=== PATIENT | male | born 1980 | race African-American/Black ===

== ENCOUNTER 2017-08-12 15:04 | Emergency (ER) | payer MEDICARE, MEDICAID ==
--- NOTE | 2017-08-12 16:23 | ER Document Report ---
ED Headache - General Chief Complaint: Headache >24 hrs old Stated Complaint: HEAD PAIN Time Seen by Provider: 08/12/17 15:48 Notes: 36-year-old male to the emergency department with a 6 day history of headache. Seen by his primary care doctor Dr. Burnett a few days ago. Was prescribed some medication for the headache but nothing has helped. Was recommended that he come to the emergency department for further evaluation if symptoms persisted. Patient states that he had a fever on and off for the last couple of days but no fever at this time. Fever was never greater than 99. Denies any significant neck stiffness but does have some spasticity is with his cerebral palsy. Did have a ventricular shunt when he was child but this has since been removed. No prior history of meningitis. No recent surgeries. No changes in medication. Headache is located at the occiput. No worsening neurological symptoms. No rash. Patient does complain of a sore throat. TRAVEL OUTSIDE OF THE [place] IN LAST 30 DAYS: No - Related Data Allergies/Adverse Reactions: No Known Allergies Allergy (Unverified 08/12/17 15:20) Home Medications: Current Home Medications Amoxicillin 500 mg PO BID 08/12/17 [History] Butalb/Acetaminophen/Caffeine [Fioricet 50-300-40 mg Capsule] 1 cap PO Q4HP PRN 08/12/17 [History] Carvedilol 6.25 mg PO BID 08/12/17 [History] Chlorpheniramine Maleate [Aller-Chlor 4 mg Tablet] 1 tab PO Q6HP PRN 08/12/17 [ History] Lisinopril 20 mg PO DAILY 08/12/17 [History] Omeprazole 20 mg PO DAILY 08/12/17 [History] Past Medical History - Social History Smoking Status: Never Smoker Chew tobacco use (# tins/day): No Frequency of alcohol use: None Drug Abuse: None Family History: Reviewed & Not Pertinent Renal/ Medical History: Denies: Hx Peritoneal Dialysis Past Surgical History: Reports: Hx Orthopedic Surgery - right hip/leg - Immunizations Hx Diphtheria, Pertussis, Tetanus Vaccination: No Review of Systems - Review of Systems Constitutional: No symptoms reported EENT: No symptoms reported, Throat pain Cardiovascular: No symptoms reported Respiratory: No symptoms reported Gastrointestinal: No symptoms reported Genitourinary: No symptoms reported Male Genitourinary: No symptoms reported Musculoskeletal: No symptoms reported Skin: No symptoms reported Hematologic/Lymphatic: No symptoms reported Neurological/Psychological: No symptoms reported, Headaches Physical Exam - Vital signs Vitals: Temp Pulse Resp BP Pulse Ox 99.2 F 88 17 142/83 H 96 08/12/17 15:18 08/12/17 15:18 08/12/17 15:18 08/12/17 15:18 08/12/17 15:18 Interpretation: Normal - General General appearance: Appears well, Alert In distress: None Notes: he does have sequela of cerebral palsy - HEENT Head: Normocephalic, Atraumatic Eyes: Normal Extraocular movements intact: Yes - Patient does have abnormal eye movements consistent with his history of CP Pupils: PERRL Pharynx: Erythema Neck: Normal - Respiratory Respiratory status: No respiratory distress Chest status: Nontender Breath sounds: Normal Chest palpation: Normal - Cardiovascular Rhythm: Regular Heart sounds: Normal auscultation Murmur: No - Abdominal Inspection: Normal Distension: No distension Bowel sounds: Normal Tenderness: Nontender Organomegaly: No organomegaly - Back Back: Normal, Nontender - Extremities General upper extremity: Normal inspection, Nontender, Normal color, Normal ROM , Normal temperature General lower extremity: Normal inspection, Nontender, Normal color, Normal ROM , Normal temperature, Normal weight bearing. No: Vlaerie's sign - Neurological Neuro grossly intact: Yes Cognition: Normal Orientation: AAOx4 Steven Coma Scale Eye Opening: Spontaneous [place] Coma Scale Verbal: Oriented Steven Coma Scale Motor: Obeys Commands [place] Coma Scale Total: 15 Speech: Normal Motor strength normal: LUE, RUE, LLE, RLE Sensory: Normal - Psychological Associated symptoms: Normal affect, Normal mood - Skin Skin Temperature: Warm Skin Moisture: Dry Skin Color: Normal Course - Re-evaluation Re-evalutation: 08/12/17 19:15 This is a very pleasant 36-year-old male in no acute distress at this time. Blood work, CT scan was performed. The only remarkable finding was some chronic thing seen on CT scan as well as maxillary sinusitis. Sinusitis could be leading to his symptoms. The CBC was abnormal in that the WBC count was slightly low and he did have some abnormal appearing cells with a elevated monocyte count. A Monospot test was added but it was unremarkable/negative. More than likely though this does represent a viral infection. I had a long conversation with the family regarding his abnormal CBC. He does not manifest any signs of meningitis at this time. His repeat exam was unremarkable. His vital signs were unremarkable. Will start on Augmentin for sinusitis. Will give some ibuprofen. Recommend that they give him ibuprofen every 8 hours. Family is comfortable with this plan at this time. Strict warning signs are given that if he develops fever, worsening headache, neck stiffness, rash, easy bruising or any other concerns he should return immediately. 08/12/17 19:17 Labs- Entire Visit 08/12/17 08/12/17 08/12/17 16:15 16:25 16:25 WBC 3.8 L RBC 5.14 Hgb 14.9 Hct 44.2 MCV 86 MCH 28.9 MCHC 33.6 RDW 15.0 H Plt Count 165 Total Counted 100 Seg Neutrophils % Not Reportable Seg Neuts % (Manual) 44 Lymphocytes % Not Reportable Lymphocytes % (Manual) 21 Monocytes % Not Reportable Monocytes % (Manual) 22 H Eosinophils % Not Reportable Eosinophils % (Manual) 8 H Basophils % Not Reportable Basophils % (Manual) 5 H Absolute Neutrophils Not Reportable Abs Neuts (Manual) 1.7 Absolute Lymphocytes Not Reportable Abs Lymphs (Manual) 0.8 Absolute Monocytes Not Reportable Abs Monocytes (Manual) 0.8 Absolute Eosinophils Not Reportable Absolute Eos (Manual) 0.3 Absolute Basophils Not Reportable Abs Basophils (Manual) 0.2 Smudge Cells PRESENT Large Platelets PRESENT Platelet Comment ADEQUATE Poikilocytosis SLIGHT Anisocytosis SLIGHT Ovalocytes 1+ Sodium 143.2 Potassium 4.0 Chloride 105 Carbon Dioxide 28 Anion Gap 10 BUN 10 Creatinine 0.94 Est GFR ( Amer) > 60 Est GFR (Non-Af Amer) > 60 Glucose 99 Calcium 9.4 Total Bilirubin 0.4 Direct Bilirubin 0.3 Indirect Bilirubin Not Reportable Neonat Total Bilirubin Not Reportable AST 39 ALT 51 Alkaline Phosphatase 70 Total Protein 6.9 Albumin 3.9 Monotest Group A Strep Rapid NEGATIVE 08/12/17 18:02 WBC RBC Hgb Hct MCV MCH MCHC RDW Plt Count Total Counted Seg Neutrophils % Seg Neuts % (Manual) Lymphocytes % Lymphocytes % (Manual) Monocytes % Monocytes % (Manual) Eosinophils % Eosinophils % (Manual) Basophils % Basophils % (Manual) Absolute Neutrophils Abs Neuts (Manual) Absolute Lymphocytes Abs Lymphs (Manual) Absolute Monocytes Abs Monocytes (Manual) Absolute Eosinophils Absolute Eos (Manual) Absolute Basophils Abs Basophils (Manual) Smudge Cells Large Platelets Platelet Comment Poikilocytosis Anisocytosis Ovalocytes Sodium Potassium Chloride Carbon Dioxide Anion Gap BUN Creatinine Est GFR ( Amer) Est GFR (Non-Af Amer) Glucose Calcium Total Bilirubin Direct Bilirubin Indirect Bilirubin Neonat Total Bilirubin AST ALT Alkaline Phosphatase Total Protein Albumin Monotest NEGATIVE Group A Strep Rapid Head CT 08/12/17 16:15 IMPRESSION: 1. Left lateral ventricle is larger than right as described. 2. 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 Remote infarct versus arachnoid cyst. 3. Abnormal optic globes. 4. Maxillary sinus disease. EVIDENCE OF ACUTE STROKE: NO. - Vital Signs Vital signs: Temp Pulse Resp BP Pulse Ox 98.9 F 88 17 142/83 H 96 08/12/17 17:51 08/12/17 15:18 08/12/17 15:18 08/12/17 15:18 08/12/17 15:18 - Laboratory Result Diagrams: 08/12/17 16:25 08/12/17 16:25 Laboratory results interpreted by me: 08/12/17 16:25 WBC 3.8 L RDW 15.0 H Monocytes % (Manual) 22 H Eosinophils % (Manual) 8 H Basophils % (Manual) 5 H Discharge - Discharge Clinical Impression: High blood monocyte count Leukopenia Qualifiers: Leukopenia type: neutropenia Neutropenia type: unspecified Qualified Code(s): D70.9 - Neutropenia, unspecified Headache Qualifiers: Headache type: unspecified Additional Instructions: Abnormal blood count As mentioned your CBC was slightly abnormal. Please follow-up with Dr. Burnett to have repeat blood work done. Return immediately for any bruising, rash, high fever or other concerns. Sinusitis You have sinusitis, an infection of the sinus cavities of the face. The sinuses are air-filled chambers which open into the inside of the nose. Bacteria and pus fill a sinus, causing pain, drainage, and fever. Sinusitis is treated with antibiotics. Often, expectorants (to thin the sinus mucous) or decongestants (to reduce swelling) are prescribed as well. Healing requires seven to 10 days. Avoid chemical fumes, pollens, dusts, and smoke (especially cigarette smoke ). Keep the air humidified in your bedroom and work area and take plenty of liquids by mouth. This condition can be serious if the infection spreads. If your symptoms worsen, or if you develop severe headache, high fever, stiff neck, or a rash, you must call the doctor or return for re-evaluation. Headache The physician does not feel that the headache you are experiencing has a serious underlying cause. Most headaches are due to emotional stress, with resultant muscle tension (tension headache). Occasionally, headaches are secondary to changes in the blood vessels of the scalp (vascular headache and migraine headache). Sometimes, a headache is the first symptom of another developing illness, such as a viral infection. You have no evidence of stroke, bleeding, meningitis, or other serious cause of your headache. The treatment of headaches varies with the severity and cause of the pain. Not all headaches need pain shots. In fact, there is evidence that using narcotics for headaches may make them worse in the long run. The physician will determine the therapy that's in your best interest. If you develop a fever, if the headache is different from any you've previously experienced, or if the headache progressively worsens, then call your physician at once or go to the emergency room. Prescriptions: Amox Tr/Potassium Clavulanate [Augmentin 875-125 mg Tablet] 1 tab PO BID #20 tablet Ibuprofen 800 mg PO Q8H #30 tablet Referrals: RENARD BURNETT MD [Primary Care Provider] - Follow up as needed
[2017-08-12 16:42] LABS: HEMATOCRIT 44.2 % (37.9-51.0); HEMOGLOBIN 14.9 g/dL (13.5-17.0); HGB HCT DIFFERENCE 0.5; MEAN CORPUSCULAR HEMOGLOBIN 28.9 pg (27.0-33.4); MEAN CORPUSCULAR HGB CONC 33.6 g/dL (32.0-36.0); MEAN CORPUSCULAR VOLUME 86 fl (80-97); RED BLOOD COUNT 5.14 10^6/uL (4.35-5.55); WHITE BLOOD COUNT 3.8 10^3/uL (4.0-10.5)
[2017-08-12 16:52] LABS: ALANINE AMINOTRANSFERASE 51 U/L (21-72); ALBUMIN 3.9 g/dL (3.5-5.0); ALKALINE PHOSPHATASE 70 U/L (38-126); ANION GAP 10 (5-19); ASPARTATE AMINO TRANSFERASE 39 U/L (17-59); BILIRUBIN,DIRECT 0.3 mg/dL (0.0-0.4); BILIRUBIN,TOTAL 0.4 mg/dL (0.2-1.3); BLOOD UREA NITROGEN 10 mg/dL (7-20); CALCIUM 9.4 mg/dL (8.4-10.2); CARBON DIOXIDE 28 mmol/L (22-30); CHLORIDE 105 mmol/L (98-107); CREATININE RESULT 0.94 mg/dL (0.52-1.25); GLUCOSE 99 mg/dL (75-110); SODIUM 143.2 mmol/L (137-145); TOTAL PROTEIN 6.9 g/dL (6.3-8.2)
--- NOTE | 2017-08-12 17:02 | RADIOLOGY REPORT (SQ) ---
EXAM DESCRIPTION: CT HEAD WITHOUT COMPLETED DATE/TIME: 08/12/2017 4:48 pm REASON FOR STUDY: Headache 1 week history of shunt (removed), CP COMPARISON: None. TECHNIQUE: Axial images acquired through the brain without intravenous contrast. Images reviewed wi th bone, brain and subdural windows. Images stored on PACS. All CT scanners at this facility use dose modulation, iterative reconstruction, and/or weight based d osing when appropriate to reduce radiation dose to as low as reasonably achievable (ALARA). [facility]: Dose Right [facility]: CareDose [facility]: Dose Right [facility]: Teradose 4D [facility]: Timbre RADIATION DOSE: 64.6mGy. LIMITATIONS: None. FINDINGS: VENTRICLES: The left lateral ventricle is larger than the right, but there is normal taper ing of the frontal, occipital, and temporal horns. CEREBRUM: No masses. No hemorrhage. No midline shift. No evidence for acute infarction. Normal gra y/white matter differentiation. No areas of low density in the white matter. CEREBELLUM: Large area of encephalomalacia on the right. EXTRAAXIAL SPACES: No fluid collections. No masses. ORBITS AND GLOBE: No masses. The right optic globe is somewhat elongated. The left is contracted an d calcified. CALVARIUM: No fracture. PARANASAL SINUSES: Mild mucoperiosteal thickening in the right maxillary sinus. Frothy fluid in the left maxillary sinus. SOFT TISSUES: No mass or hematoma. OTHER: No other significant finding. IMPRESSION: 1. Left lateral ventricle is larger than right as described. 2. 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 Remote infarct versus arachnoid cy st. 3. Abnormal optic globes. 4. Maxillary sinus disease. EVIDENCE OF ACUTE STROKE: NO. COMMENT: Quality ID # [id number]: Final reports with documentation of one or more dose reduction techniques (e.g., Automated exposure control, adjustment of the mA and/or kV according to patient size, use of iterative reconstruction technique) TECHNICAL DOCUMENTATION: JOB ID: [id number] [employer]- All Rights Reserved
[2017-08-12 17:09] LABS: BASOPHILS % (MANUAL) 5 % (0-2); EOSINOPHILS % (MANUAL) 8 % (0-6); LYMPHOCYTES % (MANUAL) 21 % (13-45); TOTAL CELLS COUNTED 100
[2017-08-12 17:13] LABS: ANISOCYTOSIS SLIGHT; POIKILOCYTOSIS SLIGHT
[2017-08-12 17:14] LABS: OVALOCYTES 1+; SMUDGE CELLS PRESENT
[2017-08-12] MEDS ORDERED: AMOXICILLIN TR/POT CLAVULANATE 500-125 MG TAB PO ONE (19:18)
[2017-08-12] MEDS ORDERED: IBUPROFEN 800 MG TABLET PO ONE (19:18)
[2017-08-12 19:41] VITALS: BP 132/86
== END 2017-08-12 19:39 | disposition home or self-care (01) ==
LOC: ER 15:04
DX: D70.9 Neutropenia, unspecified (principal); I51.7 Cardiomegaly; G93.89 Other specified disorders of brain; J32.0 Chronic maxillary sinusitis; R51 Headache; R50.9 Fever, unspecified; Z79.899 Other long term (current) drug therapy
CPT/HCPCS: 99284; 36415; 87070; 87880; 85025; 86308; 80053; 70450; A9270 ×2

== ENCOUNTER → 2018-03-09 | Outpatient (CLI) | payer MEDICARE, MEDICAID ==
--- NOTE | 2018-03-09 14:27 | RADIOLOGY REPORT (SQ) ---
EXAM DESCRIPTION: HAND RIGHT 2 VIEWS COMPLETED DATE/TIME: 03/09/2018 11:13 am REASON FOR STUDY: CELLULITIS FO RIGHT UPPER LIMB L03.113 CELLULITIS OF RIGHT UPPER LIMB COMPARISON: None. EXAM PARAMETERS: NUMBER OF VIEWS: Three views. TECHNIQUE: AP, lateral and oblique radiographic images acquired of the right hand. LIMITATIONS: None. FINDINGS: MINERALIZATION: Normal. BONES: No acute fracture or dislocation. No worrisome bone lesions. JOINTS: Radiocarpal fusion. SOFT TISSUES: No foreign body. OTHER: No other significant finding. IMPRESSION: No evidence of osteomyelitis. TECHNICAL DOCUMENTATION: JOB ID: [id number] [employer]- All Rights Reserved Reading location - IP/workstation name: [email or web address]
== END ==
LOC: OD 10:57
PROVIDERS: ATTEND Internal Medicine
DX: L03.113 Cellulitis of right upper limb (principal)